=== PATIENT | male | born 1985 | race American Indian/Alaskan Native ===

== ENCOUNTER 2017-07-02 10:00 | Emergency (ER) | payer MEDICAID ==
[2017-07-02 10:02] VITALS: BMI 28.8
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
[2017-07-02 11:17] VITALS: BP 128/78; PULSE 78; RESP 20; TEMP 97.6; O2SAT 98
== END 2017-07-02 11:14 | disposition home or self-care (01) ==
LOC: H.ER 10:00
DX: F43.20 Adjustment disorder, unspecified (principal)